=== PATIENT | female | born 1985 | race Hispanic/Latino ===

== ENCOUNTER 2023-02-17 14:41 | Emergency (ER) | payer BC | END 2023-02-17 15:41 | disposition home or self-care (01) | LOC: ERS 14:41 | DX: R20.2 Paresthesia of skin (principal) | CPT/HCPCS: 99283 ==

== ENCOUNTER 2023-04-09 14:32 | Outpatient (CLI) | payer BC | END 2023-04-09 14:33 | disposition home or self-care (01) | LOC: BICULT 14:32 | PROVIDERS: ATTEND Physician Assistant | DX: N92.6 Irregular menstruation, unspecified (principal); N83.202 Unspecified ovarian cyst, left side | CPT/HCPCS: 76856 ==